=== PATIENT | male | born 1955 | race African-American/Black ===

== ENCOUNTER 2018-07-19 10:02 | Emergency (ER) | payer OTHER ==
[~2018-07-19] VITALS: Ht 180.3 cm; Wt 72.6 kg
[2018-07-19] MEDS ORDERED: SODIUM CHLORIDE 0.9% 1,000 ML IV ONE (10:11)
[2018-07-19 11:10] LABS: Eosinophils # (auto) 0 uL; Eosinophils % (auto) 0.1 % (0.0-7.0); Monocytes # (auto) 0.4 uL; Red Blood Cells 2.56 10^6/uL (4.5-5.90)
[2018-07-19 11:13] LABS: Basophils # (auto) 0 uL; Basophils % (auto) 0.8 % (0.0-2.0); Hematocrit 26.8 % (41.0-53.0); Hemoglobin 9.1 g/dL (13.5-17.5); Lymphocytes # (auto) 0.7 uL; Lymphocytes % (auto) 11.8 % (10.0-50.0); Mean Corpuscular Hemoglobin 35.7 pg (28.0-32.0); Mean Corpuscular Volume 104.8 fL (80.0-100.0); Monocytes % (auto) 6.7 % (0.0-12.0); Neutrophils % (auto) 80.6 % (37.0-80.0); Platelet Count (auto) 346 10^3/uL (140-450); Red Cell Distribution Width 16.4 % (11.8-14.3); White Blood Cell 6.2 10^3/uL (4.4-10.8)
[2018-07-19 11:20] LABS: Alanine Aminotransferase 96 U/L (16-61); Albumin 2.2 g/dL (3.4-5.0); Anion Gap 13 (5-15); Aspartate Aminotransferase 233 U/L (15-37); BUN/Creatinine Ratio 16.2; Blood Urea Nitrogen 19 mg/dL (7-18); Calcium 7.5 mg/dL (8.5-10.1); Carbon Dioxide 28 mmol/L (21-32); Chloride 93 mmol/L (98-107); GFR African American 81 mL/min; GFR Non-African American 67 mL/min; Glucose 92 mg/dL (74-106); Magnesium 2.2 mg/dL (1.6-2.6); Sodium 134 mmol/L (136-145)
[2018-07-19 11:25] LABS: Alkaline Phosphatase 815 U/L (45-117); Bilirubin, Total 1.7 mg/dL (0.2-1.0); INR 1.24 (0.9-1.15); Partial Thromboplastin Time 50.9 sec (23.78-33.04); Prothrombin Time 13.1 sec (9.27-12.13); Total Protein 5.6 g/dL (6.4-8.2)
[2018-07-19 11:33] LABS: Potassium 2.9 mmol/L (3.5-5.1)
[2018-07-19] MEDS ORDERED: POTASSIUM EFFERVESENT TAB 25 MEQ PO ONE (11:45)
[2018-07-19] MEDS ORDERED: LORazepam 2MG/ML-1ML VIAL IV ONE (12:30)
[2018-07-19] MEDS ORDERED: LEVETIRACETAM INJ 1,000 MG in D5W 5% 100 ML IV ONE (13:00)
[2018-07-19] MEDS ORDERED: DEXAMETHASONE SOD PHOS 10MG/1ML VIAL INJ IV ONE (13:00)
[2018-07-19 14:28] LABS: Urine Bacteria NONE SEEN /hpf (None Seen); Urine Blood Negative /uL (Negative); Urine Hyaline Cast FEW /lpf (0 - 2); Urine Specific Gravity 1.018 (1.001-1.035); Urine WBC 4 /hpf (0 - 3)
[2018-07-19 16:34] VITALS: BP 142/88
== END 2018-07-19 16:47 | disposition short-term general hospital (02) ==
LOC: EDBD 10:02 → ER 10:02
DX: G93.9 Disorder of brain, unspecified (principal); F17.210 Nicotine dependence, cigarettes, uncomplicated; Z85.01 Personal history of malignant neoplasm of esophagus
CPT/HCPCS: 36415; 51702; 70450; 71045; 74176; 80053; 81001; 83735; 83880; 84484; 85025; 85610; 85730; 93005; 96365; 96375; 99291; A6257; J1100; J1953; J7030; J7060